=== PATIENT | female | born 1990 | race Caucasian/White ===

== ENCOUNTER 2025-04-07 12:54 | Emergency (ER) | payer MEDICAID, SELFPAY ==
[2025-04-07 12:55] VITALS: BP 122/85; PULSE 95; RESP 18; TEMP 36.9; O2SAT 99; BMI 24.7
--- NOTE | 2025-04-07 13:25 | EKG12_ITS ---
Test Reason : DIZZINESS Blood Pressure : */* mmHG Vent. Rate : 76 BPM Atrial Rate : 76 BPM P-R Int : 126 ms QRS Dur : 78 ms QT Int : 374 ms P-R-T Axes : 54 42 19 degrees QTcB Int : 420 ms Normal sinus rhythm Normal ECG Confirmed by CHATA FARIAS ([id number]), editorial intern MARIPOSA MUNOZ ([id number]) on 04/08/2025 1:06:30 PM Referred By: Confirmed By: CHATA FARIAS
[2025-04-07 13:40] LABS: Hematocrit 41.6 % (37-47); Hemoglobin 14.7 g/dL (12.0-15.0); Immature Granulocytes Count 0.030 X10^3/uL (0.0-0.0); Mean Corp Hgb Conc 35.3 g/dL (32-36); Mean Corpuscular Volume 93.5 fL (81-99); Mean Platelet Vol. 9.5 fl (6.2-12.0); NRBC Flagged by Analyzer 0 % (0-5); Platelet Count 266 K/mm3 (150-450); RBC Distribution Width CV 11.8 % (11.6-14.6); RBC Distribution Width SD 39.8 fl (35.1-43.9); Red Blood Count 4.45 M/mm3 (4.2-5.4); White Blood Count 8.5 K/mm3 (4.4-11.0)
--- NOTE | 2025-04-07 14:01 | EDS_ITS ---
HPI History of Present Illness Chief Complaint: General Illness Detail of Chief Complaint: Patient is concerned because of possible mold exposure. Chiropractors conc Informant: patient Onset/Context/Timing Onset: Month(s) (Approximately 6 months ago) Context: Sudden Onset Timing: Intermittent Quality: Tachycardia, lightheadedness near syncope Location: Varies and related to exertion Current Severity: Gone Maximum Severity: Severe Worsened by: With exertion, going to the gym and if dehydrated Relieved by: Nothing Associated Symptoms Associated Symptoms: Nausea with dry heaves Narrative Narrative: All of patient's symptoms started approximately 6 months ago. She believes she was exposed to mold. She denies fever, chills night sweats. She does have a intermittent cough. The cough is nonproductive. She denies wheezing. She denies weight loss or weight gain. She denies chest discomfort i.e. pressure, tightness, heaviness, indigestion, heartburn or pleuritic. She has no history of peptic ulcer disease, GERD or hiatal hernia. She has no intolerance to foods. Her symptoms predominantly occur when she is at the gym or exerting her self. She denies black or maroon-colored stool. Patient has no history of VTE. She has no risk factors for VTE. She denies leg pain, swelling or discoloration. Triage nurse documented dizziness. Patient's definition of dizziness is lightheadedness. Prior similar symptoms: No (Nothing prior to to 6 months ago) Recent Illness/Hospitalization: No PFSH PFSH Medical History Chronic fatigue disorder Fibromyalgia Allergy/AdvReac Type Severity Reaction Status Date / Time No Known Allergies Allergy Verified 04/07/25 12:56 Social History Smoking Status: Never smoker ROS ROS ED Constitutional Constitutional ED: Denies chills, fever(s), subjective, sweats or weight loss Eyes Eyes: Denies blurry vision or change in vision ENT ENT ED: Denies rhinorrhea or sore throat Cardiovascular Cardiovascular: Denies chest pain, orthopnea, palpitations, paroxysmal nocturnal dyspnea or racing heartbeat Respiratory/Chest Respiratory/Chest: Denies cough, dyspnea, dyspnea on exertion, orthopnea or paroxysmal nocturnal dyspnea Gastrointestinal Gastrointestinal: Reports nausea and vomiting; Denies abdominal pain, constipation, diarrhea or melena Genitourinary Genitourinary ED: Denies dysuria, hematuria or urinary frequency Musculoskeletal Musculoskeletal: Reports myalgias; Denies arthralgias or back pain Integumentary Denies rash Neurologic Neurologic: Reports weakness; Denies headache(s) or paresthesias Psychiatric Psychiatric: Denies anxiety or depression Endocrine Endocrinology: Denies cold intolerance or heat intolerance Hematologic/Lymphatic Hematologic/Lymphatic: Reports systems reviewed and no addt'l complaints, except as documented EXAM Physical Exam Const Vital Signs: 04/07/25 12:55 04/07/25 14:21 04/07/25 14:24 Temperature 98.5 F Temperature Source Oral Pulse Rate 95 Pulse Rate [Lying] 71 Pulse Rate [Sitting (for 1 minute prior to obtaining)] 79 Pulse Rate [Standing (for 1 minute prior to obtaining)] 87 Respiratory Rate 18 Respiratory Effort Normal Respiratory Pattern Normal Blood Pressure 122/85 H Blood Pressure [Lying] 117/74 Blood Pressure [Sitting (for 1 minute prior to obtaining)] 128/85 H Blood Pressure [Standing (for 1 minute prior to obtaining)] 128/83 H Blood Pressure Mean 97 Blood Pressure Mean [Lying] 88 Blood Pressure Mean [Sitting (for 1 minute prior to obtaining)] 99 Blood Pressure Mean [Standing (for 1 minute prior to obtaining)] 98 Pulse Ox 99 Oxygen Delivery Method Room Air Orthostatic vital signs are negative. Positive well nourished and well developed General Appearance ED: well developed and NAD; Negative for pallor HEENT Reports moist mucous membranes HEENT Narrative: Head is atraumatic normocephalic. Ears normal. Nares are patent. Posterior pharynx is normal. Eyes PERRL and EOMs intact bilaterally General Eye ED: Negative for pale conjunctiva or scleral icterus Neck no lymphadenopathy, supple and no JVD Resp normal respiratory effort and clear to auscultation bilaterally Cardio regular rate, regular rhythm, S1 normal heart sound, S2 normal heart sound and no murmurs GI normal to inspection, nondistended, normoactive bowel sounds, non-tender, non- distended and no masses; Negative for hepatosplenomegaly Back/Spine no CVA tenderness Extremity normal to inspection Extremity Narrative: There is no swelling, discoloration, asymmetry, leg vein distention, palpable cords or toes along the distribution of deep venous system. General Extremety ED: Negative for edema or tenderness General Extremity: Negative for edema Neuro oriented x3 and CN's II-XII intact bilaterally Sensorium / Orientation: alert Psych mental status grossly normal Skin no rashes or lesions noted, no wounds and skin turgor normal General Skin Exam: elasticity normal; Negative for jaundice or pallor MDM MDM MDM Narrative Medical decision making narrative: Differential diagnosis is affective disorder, POTS, malignant orthostatic hypotension, will obtain EKG to assess for any evidence of preexcitation syndrome, ischemia. CBC to assess H&H. Electrolyte panel. Orthostatic vital signs. Lab Data Attestation: I reviewed the patient's lab results. Lab results narrative: CBC is unremarkable. There is a slight shift with 74% neutrophils. Basic metabolic panel is unremarkable. Glucose slightly elevated 110. CO2 and anion gap are normal Labs: Laboratory Results - last 24 hr 04/07/25 13:30 WBC 8.5 RBC 4.45 Hgb 14.7 Hct 41.6 MCV 93.5 MCH 33.0 H MCHC 35.3 RDW Std Deviation 39.8 RDW Coeff of Tee 11.8 Plt Count 266 MPV 9.5 Immature Gran % (Auto) 0.400 Neut % (Auto) 74.4 H Lymph % (Auto) 18.0 L [place] % (Auto) 6.4 Eos % (Auto) 0.4 Baso % (Auto) 0.4 Absolute Neuts (auto) 6.3 Absolute Lymphs (auto) 1.53 Nucleated RBC % 0 Sodium 136 Potassium 4.0 Chloride 101 Carbon Dioxide 23.5 Anion Gap 12 BUN 12 Creatinine 0.76 Estim Creat Clear Calc 90.94 Est GFR (MDRD) Non-Af 103 BUN/Creatinine Ratio 15.8 Glucose 110 H Calcium 9.9 Treatment and Re-Evaluation Comments:: With negative workup negative orthostatics and history of recurrent orthostatic lightheadedness/near syncope will refer to cardiology for possible table tilt test. Vital Sign Attestation:: Patient asked if she could have bag of electrolytes . Patient was informed and send her orthostatics are negative her BUN/creatinine ratio is negative there is no indication for IV fluids. She stated that her insurance would pay for it. I informed her that I do not have an indication and they may not cover the bill. She was instructed to go home and drink an electrolyte drink Discharge Plan Triage Chief Complaint: General Illness ED Provider: [place] Dx/Rx/DC Orders Clinical Impression: Postural dizziness with near syncope, Elevated blood-pressure reading without diagnosis of hypertension Instructions: ED Dizziness, Uncertain Cause Primary Care Provider: Care Physician,No Primary Referrals: Bhupendra Ingram MD [Med Staff - Active Staff] - 1 Week Care Physician,No Primary [Primary Care Provider] - Print Language: Malagasy Disposition Disposition: Home, Self Care
[2025-04-07 14:07] LABS: Anion Gap 12 (5-15); BUN 12 mg/dL (4-19); BUN/Creat Ratio 15.8 RATIO (10-20); Calcium,Total 9.9 mg/dL (7.6-11.0); Carbon Dioxide 23.5 mmol/L (21.0-32.0); Chloride 101 mmol/L (98-108); Estimated Creatinine Clearance 90.94 ml/min (50-250); Glucose 110 mg/dL (70-99); Potassium 4.0 mmol/L (3.3-5.1)
[2025-04-07 14:21] VITALS: BP 117/74; BP 128/83; BP 128/85; PULSE 71; PULSE 79; PULSE 87
--- NOTE | 2025-04-07 14:26 | ED.RN ---
patient states they were exposed to high levels of mold, and that is what she believes is causing her symptoms. c/o dizzines, nausea, multiple syncopal episodes. patient states that he chiropractor told her she has POTS and some of her symptoms are also related to that.
[2025-04-07 14:55] VITALS: BP 109/74; PULSE 68; RESP 18; O2SAT 100
[2025-04-07 15:27] VITALS: BP 109/74; PULSE 68; RESP 18; TEMP 36.6; O2SAT 100
== END 2025-04-07 15:29 | disposition home or self-care (01) ==
PROVIDERS: Emergency Provider Emergency Medicine; Visit Provider Emergency Medicine
DX: R42 Dizziness and giddiness (principal); R03.0 Elevated blood-pressure reading, without diagnosis of hypertension; R11.2 Nausea with vomiting, unspecified; R00.0 Tachycardia, unspecified; Z77.120 Contact with and (suspected) exposure to mold (toxic)
CPT/HCPCS: 80048; 85025; 93005; 99285; A4216

== ENCOUNTER → 2025-05-22 | Outpatient (CLI) | payer MEDICAID, SELFPAY ==
--- NOTE | 2025-05-22 14:10 | ECHOD_ITS ---
Reason For Study Reason For Study: CHEST PAIN Procedure This was a 2D Doppler, Color Flow transthoracic echocardiogram. Exam performed in department. Left Ventricle Normal size and thickness. The left ventricular ejection fraction is 65 %. No evidence for diastolic dysfunction. Right Ventricle Normal right ventricle. Atria The left and right atria are normal. Cannot exclude tiny PFO. Mitral Valve Trivial mitral valve insufficiency. Tricuspid Valve Trivial tricuspid valve insufficiency. Normal pulmonary artery pressure. Aortic Valve Trisinus/trileaflet aortic valve. Pulmonic Valve The pulmonic valve is not well visualized. Great Vessels Normal sized aortic root. Pericardium/Pleural No pericardial effusion. MMode/2D Measurements & Calculations LVIDd: 4.2 cm IVSd: 0.86 cm Ao root diam: 2.8 cm LVIDs: 2.9 cm LVPWd: 0.88 cm FS: 29.9 % LAV(MOD-bp): 31.7 ml LVAd ap4: 21.2 cm2 SV(MOD-sp4): 34.0 ml LAV(MOD-bp) Indexed: 19.6 ml/m2 LVLd ap4: 6.8 cm SI(MOD-sp4): 21.0 ml/m2 LAV(MOD-sp2): 26.9 ml EDV(MOD-sp4): 55.1 ml LAV(MOD-sp4): 31.7 ml EDV(sp4-el): 56.4 ml LVAs ap4: 11.6 cm2 LVLs ap4: 5.2 cm ESV(MOD-sp4): 21.1 ml ESV(sp4-el): 22.2 ml EF(MOD-sp4): 61.7 % EF(sp4-el): 60.7 % SV(sp4-el): 34.2 ml LA A4 area: 13.2 cm2 LA dimension(2D): 3.0 cm RA A4 area: 9.2 cm2 Time Measurements MV dec time: 0.27 sec Doppler Measurements & Calculations MV E max cyril: 72.9 cm/sec Lat Peak E' Cyril: 15.6 cm/sec Med Peak E' Cyril: 12.5 cm/sec MV A max cyril: 69.0 cm/sec E/E' lat: 4.7 E/E' med: 5.9 MV E/A: 1.1 MV V2 max: 94.8 cm/sec Ao V2 max: 156.8 cm/sec MV max P.6 mmHg MV dec slope: 270.4 cm/sec2 Ao max P.9 mmHg MV V2 mean: 54.5 cm/sec Ao V2 mean: 107.1 cm/sec MV mean P.4 mmHg Ao mean P.3 mmHg MV V2 VTI: 24.1 cm Ao V2 VTI: 31.0 cm AV (velocity ratio): 0.83 LV V1 max: 132.8 cm/sec PA V2 max: 126.1 cm/sec LV V1 max P.0 mmHg PA V2 mean: 82.7 cm/sec LV V1 mean P.2 mmHg LV V1 mean: 97.6 cm/sec LV V1 VTI: 25.6 cm ECHO/Echo Complete Interpretation Summary The left ventricular ejection fraction is 65 %. Cannot exclude tiny PFO. Ordering Physician: Bhupendra Ingram Referring Physician: Bhupendra Ingram Performed By: Bee Evans RCS
== END | disposition home or self-care (01) ==
LOC: CVS 14:10
PROVIDERS: Referring Provider Internal Medicine Cardiovascular Disease; Visit Provider Internal Medicine Cardiovascular Disease
DX: R07.9 Chest pain, unspecified (principal)
CPT/HCPCS: 93306

== ENCOUNTER 2025-06-18 11:39 | Outpatient (REF) | payer SELFPAY | END 2025-06-18 23:59 | disposition home or self-care (01) | LOC: EDREF 11:39 | DX: Z04.41 Encounter for examination and observation following alleged adult rape (principal) ==